=== PATIENT | male | born 1985 | race Caucasian/White ===

== ENCOUNTER 2025-01-29 11:17 | Emergency (ER) | payer BC, SELFPAY ==
[2025-01-29 11:18] VITALS: BP 160/110
[2025-01-29 12:19] VITALS: BP 172/85
[2025-01-29 12:28] VITALS: BMI 40.6
[2025-01-29 12:54] LABS: D-Dimer < 0.27 ug/mlFEU (0.00-0.50)
[2025-01-29 13:00] VITALS: BP 143/80
[2025-01-29 13:05] VITALS: BP 143/80
[2025-01-29 13:21] LABS: Troponin I < 0.012 ng/ml
[2025-01-29 14:00] VITALS: BP 135/82
[2025-01-29 14:15] LABS: Hematocrit 37.9 % (39.0-52.0); Hemoglobin 13.2 g/dL (13.0-18.0); Mean Corp Hgb Conc. 34.8 g/dL (33.0-37.0); Mean Corpuscular Volume 93.3 fL (80.0-94.0); Nucleated Red Blood Cells % 0 % (-); Platelet Count 158 10^3/uL (130-400); Red Cell Dist. Width 12.3 % (11.5-14.5)
[2025-01-29 14:29] LABS: ALT (SGPT) 113 U/L (0-50); AST (SGOT) 82 U/L (17-59); Albumin 4.6 g/dl (3.5-5.0); Alkaline Phosphatase 79 U/L (38-126); Blood Urea Nitrogen 17 mg/dl (9-20); Calcium 9.8 mg/dl (8.4-10.2); Carbon Dioxide 26 mmol/L (22-30); Chloride 102 mmol/L (98-107); Estimated Creatinine Clearance > 125 ml/min; Glucose 103 mg/dl (70-99); Potassium 4.2 mmol/L (3.5-5.1); Sodium 136 mmol/L (135-145); Total Protein 7.0 g/dl (6.3-8.2); eGFR > 60.00
[2025-01-29 15:00] VITALS: BP 144/91
--- NOTE | 2025-01-29 15:03 | ED.GENMED ---
History of Present Illness
General
Chief Complaint: Blood Pressure Problem
Source: patient
Exam Limitations: none
Time Seen by Provider: 01/29/25 12:03
History of Present Illness
History of Present Illness:
Patient mostly concerned about his blood pressure. Saw his primary care about a week ago for a routine first visit. He was started on metformin and lisinopril. He was concerned today because he felt slightly dizzy and his blood pressure was
240/90 at work. No other neurologic symptoms no headache no chest pain shortness of breath or other complaints
Past History
Past History
ED Past Medical History: HTN and NIDDM
ED Past Surgical History: Orthopedic and Tonsilectomy
Social History
Tobacco: Smoker
Drug: None
Personal: Single
Living: with family
Employment: Employed
Review of Systems
Review of Systems
All Other Systems: Not applicable
Constitutional: Denies fever
Neurological: Denies weakness or numbness
Phy Exam
Physical Exam
Physical Exam:
GENERAL: Alert and oriented in no apparent distress
EYE: Orbits normal.
NECK: Supple, no significant adenopathy.
ENT: Pharynx without erythema
CARDIAC: Borderline tachycardia and regular no murmur
LUNGS: Clear breath sounds,normal
ABDOMEN: Soft, without focal tenderness or distention
NEUROLOGICAL: Alert and oriented , cranial nerves II through XII intact. Speech normal. Gait normal. Nonfocal.
SKIN: Warm and dry, no rash or lesion, no discoloration, skin intact.
MUSCULOSKELETAL: No edema,no deformity.Good color
PSYCH: Normal and appropriate interaction.. Elevated BMI
Course
Orders/Labs/Results
Orders:
Orders
01/29/25 11:23
Electrocardiogram (*1) Urgent
Reason for Study: Vertigo / Dizzy
EKG- Treatment ONCE
01/29/25 12:14
CT Head W/o Iv Contrast Urgent
Comment:
Reason For Exam: Dizziness/hypertension
Cardiac Monitoring- Treatment ONCE
IV Insert/Care/Rem.- Treatment PRN
01/29/25 12:24
Troponin I Urgent
01/29/25 12:25
D-Dimer Urgent
TSH Reflex To Free T4 Urgent
01/29/25 13:59
Complete Blood Count/With Diff Urgent
Comprehensive Metabolic Panel Urgent
Abnormal Lab Results
01/29/25
13:59
RBC 4.06 L 10^6/uL
(4.70-6.10)
Hct 37.9 L %
(39.0-52.0)
MCH 32.5 H pg
(27.0-31.0)
Lymphocytes % 17.1 L %
(20.5-51.1)
Glucose 103 H mg/dl
(70-99)
AST 82 H U/L
(17-59)
ALT 113 H U/L
(0-50)
01/29/25 13:59
01/29/25 13:59
Vital Signs
Initial and Last Documented VS:
Initial Vital Signs
Temp Pulse Resp BP Pulse Ox
97.8 F 101 22 160/110 98
01/29/25 11:18 01/29/25 11:18 01/29/25 11:18 01/29/25 11:18 01/29/25 11:18
Last Documented Vital Signs
Temp Pulse Resp BP Pulse Ox
97.8 F 100 26 144/91 95
01/29/25 11:18 01/29/25 15:15 01/29/25 15:15 01/29/25 15:00 01/29/25 15:15
*Radiology
Radiology exam reviewed: radiology read reviewed (Negative head CT with result)
*Pulse Oximetry
SaO2: 97
Oxygen Mode of Delivery: Room air
Patient hypoxic: no
*Nut Roaster Interpretation
Rate: normal
Interpretation: normal
Heart Rate: 98
Rhythm: sinus
*Critical Care Note
Total Time (30-74mins, 75-104mins- exclusive of procedures): Not Applicable
Update Note
Update Note:
Patient has remained medically stable and nontoxic. Last blood pressure low 140s over 91. Neurologic exam normal. Workup unremarkable. Minimal transaminase elevation likely secondary to fatty liver. Stable for discharge to follow-up
ED Attending Note
-
Portions of this chart may have been created with voice recognition software.� Occasional wrong word or��sound alike� substitutions may have occurred due to the inherent limitations of voice recognition software.
Discharge Plan
Departure
Patient Disposition: Home (Routine Discharge)
Date of Disposition: 01/29/25
Time of Disposition: 15:09
Patient with high blood pressure during this ER visit?: Yes
Discharge Problem:
Dizziness/hypertension
Instructions: Dizziness in adults - ED (DC), BLOOD PRESSURE
Prescriptions:
No Action
zinc 10 MG tablet
10 mg PO DAILY
Referrals:
NONE,* [Family Provider, Internal Medicine]
Stand Alone Forms: Return to Work
Activity Restrictions/Additional Instructions:
Follow-up closely with your primary physician
Monitor your blood pressures
Your liver enzymes are very minimally elevated. These should be repeated in the next few weeks
Interventions
Interventions:
*Risk Screen - Suicide Last Done: 01/29/25 12:09
*General Assessment Last Done: 01/29/25 12:09
*Neglect/Abuse Screening Last Done: 01/29/25 12:09
*ED- Fall Risk Assessment Last Done: 01/29/25 12:09
*ED COVID-19 Vaccine History Last Done: 01/29/25 12:09
*Nursing Disposition Last Done: 01/29/25 15:25
ED- Cardiac Assessment Last Done: 01/29/25 12:09
ED- Neurological Assessment Last Done: 01/29/25 12:09
ED- Pulmonary Assessment Last Done: 01/29/25 12:26
Discharge Date and Time
Discharge Date/Time: 01/29/25 15:25
Print Language: DANISH
== END 2025-01-29 15:25 | disposition home or self-care (01) ==
LOC: EMR 11:17
PROVIDERS: EMERGENCY PHYSICIAN Emergency Medicine
DX: R42 Dizziness and giddiness (principal); I10 Essential (primary) hypertension; E11.9 Type 2 diabetes mellitus without complications; R74.01 Elevation of levels of liver transaminase levels; F17.200 Nicotine dependence, unspecified, uncomplicated; Z79.899 Other long term (current) drug therapy; Z79.84 Long term (current) use of oral hypoglycemic drugs
CPT/HCPCS: 99284; 70450; 80053; 84443; 84484; 85025; 85379; 93005

== ENCOUNTER → 2025-04-12 14:27 | Outpatient (REF) | payer BC, SELFPAY | LOC: HWRAD 14:27 | PROVIDERS: ATTENDING PHYSICIAN Nurse Practitioner Primary Care | DX: M79.659 Pain in unspecified thigh (principal); R52 Pain, unspecified | CPT/HCPCS: 76882 ==